=== PATIENT | female | born 1965 | race Caucasian/White ===

== ENCOUNTER 2022-02-24 10:50 | Emergency (ER) | payer OTHER ==
[~2022-02-24] VITALS: Ht 175.3 cm; Wt 101.2 kg
[2022-02-24 11:19] VITALS: BP 145/90
--- NOTE | 2022-02-24 11:24 | NUR ---
PT STATES SHE WILL WAIT OUTSIDE.
--- NOTE | 2022-02-24 12:11 | NUR ---
PT AMBULATED WITH STEADY GAIT TO BED 10
--- NOTE | 2022-02-24 12:29 | NUR ---
DR RAYMUNDO AT BEDSIDE FOR FURTHER EVAL
[2022-02-24] MEDS ORDERED: SULFAMETH/TRIMETH DS 800/160MG 1 TAB PO ONE (12:45)
--- NOTE | 2022-02-24 12:45 | NUR ---
XRAY AT BEDSIDE
[2022-02-24] MEDS ORDERED: SULF-59 PO (13:29)
--- NOTE | 2022-02-24 14:00 | NUR ---
Patient discharged with v/s stable. Written and verbal after care instructions given and explained. Patient alert, oriented and verbalized understanding of instructions. Ambulatory with steady gait. All questions addressed prior to discharge. ID band removed. Patient advised to follow up with PMD. Rx of BACTRIM DS 800 given. Patient educated on indication of medication including possible reaction and side effects. Opportunity to ask questions provided and answered.
[2022-02-24 14:03] VITALS: BP 129/71
== END 2022-02-24 14:00 | disposition home or self-care (01) ==
LOC: MED 10:50
DX: E11.622 Type 2 diabetes mellitus with other skin ulcer (principal); Z79.2 Long term (current) use of antibiotics
CPT/HCPCS: 73590; 99283